=== PATIENT | female | born 1945 | race Caucasian/White ===

== ENCOUNTER → 2018-08-30 | Outpatient (CLI) | payer MEDICARE | END | disposition home or self-care (01) | LOC: CFH 09:17 | PROVIDERS: ATTEND Family Medicine | DX: M19.072 Primary osteoarthritis, left ankle and foot (principal); M21.072 Valgus deformity, not elsewhere classified, left ankle ==

== ENCOUNTER 2018-11-29 07:51 | Outpatient (CLI) | payer MEDICARE ==
[2018-11-29] MEDS ORDERED: LIDOCAINE-MPF 1%, 5ML ONE (07:58)
[2018-11-29] MEDS ORDERED: ROPivacaine/PF 0.2%, 10 ML ONE (07:58)
[2018-11-29] MEDS ORDERED: TRIAMCINOLONE ACETONIDE 40 MG/ML, 1ML ONE (07:58)
[2018-11-29] MEDS ORDERED: OMNIPAQUE 180 MG/ML, 10ML VIAL ONE (08:00)
== END 2018-11-29 23:59 | disposition home or self-care (01) ==
LOC: RAD 07:51
PROVIDERS: ATTEND Nurse Practitioner
DX: M19.072 Primary osteoarthritis, left ankle and foot (principal)
CPT/HCPCS: 20600; 77002; J2795; J3301; Q9965; 20604

== ENCOUNTER 2019-07-08 12:27 | Outpatient (CLI) | payer MEDICARE ==
[2019-07-08] MEDS ORDERED: TRIAMCINOLONE ACETONIDE 40 MG/ML, 1ML ONE (12:44)
[2019-07-08] MEDS ORDERED: ROPivacaine/PF 0.2%, 10 ML ONE (12:44)
[2019-07-08] MEDS ORDERED: LIDOCAINE-MPF 1%, 5ML ONE (12:44)
== END 2019-07-08 23:59 | disposition home or self-care (01) ==
LOC: RAD 12:27
PROVIDERS: ATTEND Nurse Practitioner
DX: M13.872 Other specified arthritis, left ankle and foot (principal)
CPT/HCPCS: 20605; 77002; J2795; J3301